=== PATIENT | male | born 1995 | race Caucasian/White ===

== ENCOUNTER 2018-04-23 11:38 | Emergency (ER) | payer OTHER ==
[2018-04-23] MEDS ORDERED: IBUPROFEN 600 MG TAB PO ONE (11:42)
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
[2018-04-23 13:29] VITALS: BP 135/84
== END 2018-04-23 13:28 | disposition home or self-care (01) ==
DX: S06.0X1A Concussion with loss of consciousness of 30 minutes or less, initial encounter (principal); V18.0XXA Pedal cycle driver injured in noncollision transport accident in nontraffic accident, initial encounter; Y92.480 Sidewalk as the place of occurrence of the external cause